=== PATIENT | female | born 1995 ===

== ENCOUNTER 2017-05-24 12:56 | Emergency (ER) | payer MEDICAID ==
[2017-05-24 13:09] VITALS: BP 130/81; PULSE 84; RESP 18; TEMP 98; O2SAT 99
--- NOTE | 2017-05-24 19:11 | ED PDOC ---
HPI: Abdomen Time Seen by Provider: 05/24/17 15:56 Chief Complaint (Nursing): GI Problem Chief Complaint (Provider): Abdominal Pain History Per: Patient History/Exam Limitations: no limitations Onset/Duration Of Symptoms: Days (x 7) Outside of [place] travel?: Yes Other Location:: [place] Current Symptoms Are (Timing): Still Present Quality Of Discomfort: "Pain" Associated Symptoms: Diarrhea (lasting two days, then resolved), Other ( constipation for past two days). denies: Fever, Nausea, Vomiting Additional Complaint(s): 21 year old female presents to the ED with complaints of constipation for the past two days. Patient states she traveled to [place] and returned one week ago. Patient reports she had diarrhea of which lasted for two days and resolved but now has constipation. Patient denies of nausea, vomiting, fever, chills, sweats and body aches. Past Medical History Reviewed: Historical Data, Nursing Documentation, Vital Signs Vital Signs: Last Vital Signs Temp 98 F 05/24/17 13:05 Pulse 84 05/24/17 13:05 Resp 18 05/24/17 13:05 BP 130/81 05/24/17 13:05 Pulse Ox 99 05/24/17 20:03 - Surgical History Surgical History: No Surg Hx - Family History Family History: States: No Known Family Hx - Home Medications Home Medications: Ambulatory Orders Medication Instructions Recorded Docusate Sodium [Colace] 100 mg PO BID PRN #10 capsule 05/24/17 - Allergies Allergies/Adverse Reactions: Allergies Allergy/AdvReac Type Severity Reaction Status Date / Time No Known Allergies Allergy Verified 05/24/17 13:05 Review of Systems ROS Statement: Except As Marked, All Systems Reviewed And Found Negative Constitutional: Negative for: Fever, Chills Gastrointestinal: Positive for: Diarrhea (x 2 days), Constipation (x 2 days). Negative for: Nausea, Vomiting Physical Exam - Reviewed Nursing Documentation Reviewed: Yes Vital Signs Reviewed: Yes - Physical Exam Comments: GENERAL APPEARANCE: Patient is awake, alert, oriented x 3, in no acute distress SKIN: Warm, dry; (-) cyanosis. EYES: (-) conjunctival pallor, (-) scleral icterus. ENMT: Mucous membranes moist. NECK: (-) tenderness, (-) stiffness, (-) lymphadenopathy. CHEST AND RESPIRATORY: (-) rales, (-) rhonchi, (-) wheezes; breath sounds equal bilaterally. HEART AND CARDIOVASCULAR: (-) irregularity; (-) murmur, (-) gallop. ABDOMEN AND GI: (-) distention. Bowel sounds active;(-) guarding, (-) rebound , (-) palpable masses, (-) CVA tenderness. EXTREMITIES: (-) deformity, (-) edema, (+) distal pulses. NEURO AND PSYCH: Mental status as above; (-) focal findings. - ECG O2 Sat by Pulse Oximetry: 99 (RA) Pulse Ox Interpretation: Normal Medical Decision Making Medical Decision Making: Impression: Abdominal Pain Plan: -- Obstructive Series (RAD) -- POC Urine -- [place] [facility] [place] Abdominal X-Ray as read by CHARLOTTE shows no acute findings, NSBGP, no air fluid levels. Patient advised that official radiology read of XR is still pending and will call the patient if there is any discrepancy within 24 hours. Patient is requesting for c diff test to be done. Patient provided with a stool sample, will send for c diff. Advised to follow up with primary care physician in 1-2 days without fail. Return to the emergency room at any time for any new or worsening symptoms. Patient states she fully agrees with and understands discharge instructions. States that she agrees with the plan and disposition. Verbalized and repeated discharge instructions and plan. I have given the patient opportunity to ask any additional questions. Scribe Attestation: Documented by Preeti Perez acting as a scribe for CHARLOTTE Chavarria Provider Attestation: All medical record entries made by the Scribe were at my direction and personally dictated by me. I have reviewed the chart and agree that the record accurately reflects my personal performance of the history, physical exam, medical decision making, and the department course for this patient. I have also personally directed, reviewed, and agree with the discharge instructions and disposition. Disposition - Clinical Impression Clinical Impression: Constipation - Patient ED Disposition Is Patient to be Admitted: No Counseled Patient/Family Regarding: Studies Performed, Diagnosis, Need For Followup, Rx Given - Disposition Disposition: Routine/Home Disposition Time: 19:00 Condition: STABLE Additional Instructions: Follow up with your pmd in 2 days without fail. Take medication as prescribed, drink plenty of water, increase intake of fiber rich foods. Return to the ER at any time for any new or worsening symptoms. Prescriptions: Docusate Sodium [Colace] 100 mg PO BID PRN #10 capsule PRN Reason: Constipation Instructions: Constipation in Adults Forms: [facility] (German), [facility] ED School/Work Excuse
--- NOTE | 2017-05-25 10:38 | RAD ---
PROCEDURE: Radiographs of the chest and abdomen (obstructive series) HISTORY: constipation COMPARISON: No prior. TECHNIQUE: AP radiograph of the chest, with upright and supine radiographs of the abdomen. FINDINGS: CHEST: Lungs: Clear. Cardiovascular: Normal size heart. No pulmonary vascular congestion. Pleura: No pleural fluid. No pneumothorax. Other findings: None. ABDOMEN AND PELVIS: Bowel: Unremarkable bowel gas pattern. No evidence of mechanical obstruction. Free air: None. Bones: Unremarkable. Other findings: None. IMPRESSION: Unremarkable radiographs of chest and abdomen. No evidence of mechanical bowel obstruction.
== END 2017-05-24 19:39 | disposition home or self-care (01) ==
LOC: H.ER 12:56
DX: K59.00 Constipation, unspecified (principal)